=== PATIENT | female | born 1980 | race Caucasian/White ===

== ENCOUNTER 2017-07-25 10:57 | Emergency (ER) | payer MEDICAID ==
[~2017-07-25] VITALS: Ht 157.5 cm; Wt 61.4 kg
[2017-07-25] MEDS ORDERED: ALBU8HFA IH (11:05)
[2017-07-25 11:28] LABS: INFLUENZA TYPE A NEGATIVE FOR TYPE A (NEGATIVE); INFLUENZA TYPE B NEGATIVE FOR TYPE B (NEGATIVE)
[2017-07-25 14:02] VITALS: BP 132/71
== END 2017-07-25 14:04 | disposition home or self-care (01) ==
LOC: EMS 10:58
DX: J06.9 Acute upper respiratory infection, unspecified (principal); J45.909 Unspecified asthma, uncomplicated
CPT/HCPCS: 87430; 87804; 99285

== ENCOUNTER 2020-11-13 19:35 | Emergency (ER) | payer MEDICAID, OTHER ==
[~2020-11-13] VITALS: Ht 157.5 cm; Wt 79.5 kg
[~2020-11-13 19:35] MED LIST: ALBU8HFA IH
[2020-11-13] MEDS ORDERED: ALBUTEROL SULFATE HFA 90 MCG/PUFF 8 GM INHALER IH ONE (20:15)
[2020-11-13] MEDS ORDERED: DEXAMETHASONE 4 MG TABLET PO ONE (20:30)
[2020-11-13 20:46] VITALS: BP 125/78
== END 2020-11-13 20:51 | disposition home or self-care (01) ==
LOC: EMS 19:38
DX: J45.901 Unspecified asthma with (acute) exacerbation (principal)
CPT/HCPCS: 94640; 99283; J8540; J3535

== ENCOUNTER 2022-04-26 14:33 | Emergency (ER) | payer OTHER ==
[~2022-04-26] VITALS: Ht 157.5 cm; Wt 77.3 kg
[2022-04-26] MEDS ORDERED: PredniSONE 20 MG TABLET PO ONE (14:45)
[2022-04-26] MEDS ORDERED: IPRATROPIUM BROMIDE 0.5 MG/2.5 ML NEB SOLUTION NEB ONE (14:45)
[2022-04-26] MEDS ORDERED: ALBUTEROL SULFATE 5 MG/ML 20 ML NEB SOLN [BULK] NEB ONE (14:45)
[2022-04-26] MEDS ORDERED: ALBUTEROL SULFATE 2.5 MG/0.5 ML NEB SOLUTION NEB ONE ×2 (14:56)
[2022-04-26 16:08] VITALS: BP 137/80
[2022-04-26] MEDS ORDERED: PRED-554 PO ×2 (16:23→16:34)
== END 2022-04-26 16:35 | disposition home or self-care (01) ==
LOC: EMS 14:36
DX: J45.901 Unspecified asthma with (acute) exacerbation (principal)
CPT/HCPCS: 99285; 71045; 94644; J7512; J7613

== ENCOUNTER 2022-06-16 01:21 | Emergency (ER) | payer OTHER ==
[~2022-06-16] VITALS: Ht 157.5 cm; Wt 77.0 kg
[~2022-06-16 01:21] MED LIST changes: +PRED-554 PO
[2022-06-16] MEDS ORDERED: ALBUTEROL SULFATE 2.5 MG/0.5 ML NEB SOLUTION NEB ONE ×2 (02:00→04:00)
[2022-06-16] MEDS ORDERED: IPRATROPIUM BROMIDE 0.5 MG/2.5 ML NEB SOLUTION NEB ONE ×3 (02:00→04:00)
[2022-06-16] MEDS ORDERED: PredniSONE 20 MG TABLET PO ONE (02:00)
[2022-06-16] MEDS ORDERED: EPINEPHrine 1:1,000 [1 MG/ML] VIAL SQ ONE (02:45)
[2022-06-16] MEDS ORDERED: ALBUTEROL SULFATE 5 MG/ML 20 ML NEB SOLN [BULK] NEB ONE (04:00)
[2022-06-16 05:28] VITALS: BP 155/80
[2022-06-16] MEDS ORDERED: PRED-554 PO (05:34)
[2022-06-16] MEDS ORDERED: AUD NEB (05:34)
[2022-06-16] MEDS ORDERED: BECL10.62 IH (05:34)
[2022-06-16] MEDS ORDERED: ALBU8HFA IH (05:34)
== END 2022-06-16 05:56 | disposition home or self-care (01) ==
LOC: EMS 01:24
DX: J45.901 Unspecified asthma with (acute) exacerbation (principal); F17.210 Nicotine dependence, cigarettes, uncomplicated; Z98.890 Other specified postprocedural states
CPT/HCPCS: 99285; 99406; 94644; 94645; J0171; J7512

== ENCOUNTER 2022-09-19 21:23 | Emergency (ER) | payer OTHER ==
[~2022-09-19] VITALS: Ht 157.5 cm; Wt 77.0 kg
[~2022-09-19 21:23] MED LIST changes: +ALBU18HF12 IH; -ALBU8HFA IH; +AUD NEB; +BECL10.62 IH
[2022-09-19] MEDS ORDERED: ALBUTEROL SULFATE 2.5 MG/0.5 ML NEB SOLUTION NEB ONE (22:15)
[2022-09-19] MEDS ORDERED: IPRATROPIUM BROMIDE 0.5 MG/2.5 ML NEB SOLUTION NEB ONE (22:15)
[2022-09-19] MEDS ORDERED: PredniSONE 20 MG TABLET PO ONE (22:15)
[2022-09-19] MEDS ORDERED: PRED-554 PO (23:04)
[2022-09-19 23:25] VITALS: BP 123/70
== END 2022-09-19 23:41 | disposition still patient (30) ==
LOC: EMS 21:23
DX: J45.901 Unspecified asthma with (acute) exacerbation (principal); F17.210 Nicotine dependence, cigarettes, uncomplicated; Z98.890 Other specified postprocedural states
CPT/HCPCS: 99285; 71045; 94640; J7512; J7613